=== PATIENT | male | born 1970 | race Caucasian/White ===

== ENCOUNTER 2016-12-04 16:43 | Emergency (ER) | payer OTHER ==
[2016-12-04 16:53] VITALS: TEMP 99.3
[2016-12-04] MEDS ORDERED: (Novolin R) Insulin Human Regular 100 units/ml vial IV STA ×2 (17:06→18:46)
[2016-12-04 17:21] LABS: VENOUS BLOOD GAS BASE EXCESS 2.8 mmol/L (0.0-2.0); VENOUS BLOOD GAS PCO2 40 mmHg (40-60); VENOUS BLOOD PH 7.44 (7.32-7.43)
[2016-12-04] MEDS ORDERED: (Novolin R) Insulin Human Regular 100 units/ml vial ONE ×2 (17:23→18:55)
[2016-12-04 17:25] LABS: BASO % 0.3 % (0.0-2.0); HEMATOCRIT 41.2 % (35.0-51.0); LYMPH # 0.9 K/uL (1.0-4.3); LYMPH % 6.6 % (20.0-40.0); MEAN CELL VOLUME 85.7 fL (80.0-94.0); MEAN CORPUSCULAR HEMOGLOBIN 29.1 pg (27.0-31.0); MEAN PLATELET VOLUME 9.6 fL (7.2-11.7); MONO # 0.6 K/uL (0.0-0.8); MONO % 4.4 % (0.0-10.0); NRBC % 0.1 % (0.0-2.0); PLATELET COUNT 265 K/uL (130-400); RED CELL DISTRIBUTION WIDTH 12.8 % (11.5-14.5); WHITE BLOOD COUNT 13.4 K/uL (4.8-10.8)
[2016-12-04 17:33] LABS: CHLORIDE 92 mmol/L (98-107); SODIUM 135 mmol/L (132-148)
[2016-12-04 17:34] LABS: POTASSIUM 3.3 mmol/L (3.6-5.2)
[2016-12-04 17:35] LABS: CHOLESTEROL 261 mg/dL (0-199); GFR AFRICAN-AMERICAN > 60
[2016-12-04 17:36] LABS: ALB/GLOB RATIO 1.1 (1.0-2.1); ALKALINE PHOSPHATASE 175 U/L (38-126); ALT/SGPT 38 U/L (21-72); AST/SGOT 21 U/L (17-59); BILIRUBIN,TOTAL 0.7 mg/dL (0.2-1.3); BLOOD UREA NITROGEN 11 mg/dL (9-20); CALCIUM 9.2 mg/dl (8.6-10.4); CARBON DIOXIDE 24 mmol/L (22-30); TOTAL PROTEIN 7.7 g/dL (6.3-8.3)
[2016-12-04 17:37] LABS: ALCOHOL SERUM < 10 mg/dl (0-10)
[2016-12-04 17:41] LABS: GLUCOSE,RANDOM 554 mg/dL (75-110)
--- NOTE | 2016-12-04 18:11 | C.PDOC ---
History Of Present Illness 46 yr old male presents to the ER for poorly controlled blood pressure. Patient states he feels dizzy and ran out of his blood pressure medicine 2 days ago. Patient denies fever, chills, chest pain, palpitations, SOB, nausea, vomiting, weakness or numbness. Time Seen by Provider: 12/04/16 16:59 Chief Complaint (Nursing): Dizziness/Lightheaded History Per: Patient History/Exam Limitations: no limitations Onset/Duration Of Symptoms: Days Past Medical History Reviewed: Historical Data, Nursing Documentation, Vital Signs Vital Signs: Last Vital Signs Temp 99.3 F 12/04/16 16:52 Pulse 89 12/04/16 19:25 Resp 23 12/04/16 19:25 BP 155/89 H 12/04/16 19:25 Pulse Ox 92 L 12/04/16 20:34 - Medical History PMH: HTN Family History: States: No Known Family Hx - Social History Hx Alcohol Use: No Hx Substance Use: No - Immunization History Hx Tetanus Toxoid Vaccination: No Hx Influenza Vaccination: No Hx Pneumococcal Vaccination: No Review Of Systems Except As Marked, All Systems Reviewed And Found Negative. Constitutional: Negative for: Fever, Chills Cardiovascular: Negative for: Chest Pain, Palpitations Respiratory: Negative for: Shortness of Breath Gastrointestinal: Negative for: Nausea, Vomiting Neurological: Positive for: Dizziness. Negative for: Weakness, Numbness Physical Exam - Physical Exam Appears: Non-toxic, No Acute Distress, Other ((+) Obese) Skin: Warm, Dry, No Rash Head: Atraumatic, Normacephalic Oral Mucosa: Dry Tongue: Other ((+) Obese tongue) Chest: Symmetrical, No Tenderness Cardiovascular: Rhythm Regular, No Murmur Respiratory: No Rales, No Rhonchi, No Wheezing, Other ((+) Small but patent airways.) Gastrointestinal/Abdominal: Normal Exam, Soft, No Tenderness, No Guarding, No Rebound, Other ((+) Obese) Extremity: Normal ROM, No Swelling Neurological/Psych: Oriented x3, Normal Speech, Normal Motor ED Course And Treatment - Laboratory Results Result Diagrams: 12/04/16 17:19 12/04/16 17:19 O2 Sat by Pulse Oximetry: 92 (RA ) Pulse Ox Interpretation: Normal - Other Rad CXR X-Ray: Viewed By Me, Read By Radiologist Interpretation: HISTORY: adm. COMPARISON: None available. TECHNIQUE: Chest , one view. FINDINGS: Examination limited by habitus and hypoinflation. The patient's chin obscures evaluation of the right lung apex. LUNGS: No focal consolidation. Please note that chest x-ray has limited sensitivity for the detection of pulmonary masses. PLEURA: No significant pleural effusion identified. No definite pneumothorax . CARDIOVASCULAR: Heart size appears within normal limits. Tortuous aorta. OSSEOUS STRUCTURES: Degenerative changes. VISUALIZED UPPER ABDOMEN: Unremarkable. OTHER FINDINGS: None. IMPRESSION: Hypoinflation. No focal consolidation, significant pleural effusion , or definite pneumothorax identified. - CT Scan/US CT - Head Other Rad Studies (CT/US): Read By Radiologist, Radiology Report Reviewed CT/US Interpretation: PROCEDURE: CT HEAD WITHOUT CONTRAST. HISTORY: elev BP, drowsy. COMPARISON: None available. TECHNIQUE: Axial computed tomography images were obtained through the head/brain without intravenous contrast. Radiation dose: Total exam DLP = 979.92 mGy-cm. This CT exam was performed using one or more of the following dose reduction techniques: Automated exposure control, adjustment of the mA and/or kV according to patient size, and/ or use of iterative reconstruction technique. FINDINGS: HEMORRHAGE: No intracranial hemorrhage. BRAIN: No mass effect or edema. Mild chronic periventricular microvascular ischemic change is noted. VENTRICLES: Unremarkable. No hydrocephalus. CALVARIUM: Unremarkable. PARANASAL SINUSES: Right maxillary retention cyst/polyp. MASTOID AIR CELLS: Unremarkable as visualized. No inflammatory changes. OTHER FINDINGS: None. IMPRESSION: No intracranial mass, hemorrhage or evidence of acute infarct. Progress Note: 1830: FS 351 -> insulin 10 IV. 2000: FS 365 -> insulin 10 IV. 2100: FS 285 (with mild nausea) Medical Decision Making Medical Decision Making: PLAN: * CT - Head * CXR * EKG * VBG * Drug Screen * Alchol Serum * Troponin * CBC * CMP * Urinalysis * Clonidine PO * Losartan PO * Trandate PO * Potassium Chloride PO * Pepcid IVP * Zofran IVP * Novolin IV * Sodium Chloride IV * 2020: pt's sister came to ER and verifies pt is disabled for "mental issues" Came from [place] May 2016 h/o CVA x 3 with no obvious neurological deficits, but pt unable to follow more than simple tasks. Was living with pt's ex-'s sister and 10 other family members with questionable quality of care (this pt is high maintenence) Able to run simple errands. Not empolyed. Noone is checking finger sticks on this pt, though administering insulin. Medicine regimen SUPPOSED to be: Lantus 40 QHS insulin 70/30 20-30 units TID AC ASA 81 QD Losartan 100 mg QD Atorvastatin 40 mg QD Breo Ellipta (fluticasone 100 mcg) 125/25 ? routine (1 puff daily) obvious small OP and huge tongue with reported S/s of CORINNA ? related to h/o CVA ( though head CT neg)- will refer for sleep Study Sister @ bedside will take home to care of him and f/u w Dr. De La Paz. Disposition Doctor Will See Patient In The: Office Counseled Patient/Family Regarding: Studies Performed, Diagnosis - Disposition Disposition: HOME/ ROUTINE Disposition Time: 20:58 Condition: GOOD Forms: [employer] ([place]) - Clinical Impression Clinical Impression: Diabetes 1.5, managed as type 1 - Scribe Statement The provider has reviewed the documentation as recorded by the Paulina Baxter Provider Attestation: All medical record entries made by the Scribe were at my direction and personally dictated by me. I have reviewed the chart and agree that the record accurately reflects my personal performance of the history, physical exam, medical decision making, and the department course for this patient. I have also personally directed, reviewed, and agree with the discharge instructions and disposition.
--- NOTE | 2016-12-04 18:14 | CT ---
PROCEDURE: CT HEAD WITHOUT CONTRAST. HISTORY: elev BP, drowsy COMPARISON: None available. TECHNIQUE: Axial computed tomography images were obtained through the head/brain without intravenous contrast. Radiation dose: Total exam DLP = 979.92 mGy-cm. This CT exam was performed using one or more of the following dose reduction techniques: Automated exposure control, adjustment of the mA and/or kV according to patient size, and/or use of iterative reconstruction technique. FINDINGS: HEMORRHAGE: No intracranial hemorrhage. BRAIN: No mass effect or edema. Mild chronic periventricular microvascular ischemic change is noted. VENTRICLES: Unremarkable. No hydrocephalus. CALVARIUM: Unremarkable. PARANASAL SINUSES: Right maxillary retention cyst/polyp MASTOID AIR CELLS: Unremarkable as visualized. No inflammatory changes. OTHER FINDINGS: None. IMPRESSION: No intracranial mass, hemorrhage or evidence of acute infarct.
[2016-12-04 18:16] LABS: NEUTROPHIL 89 % (50-75); TOTAL CELLS COUNTED 100
[2016-12-04 18:19] LABS: RBC URINE 18 /hpf (0-3); URINE BACTERIA RARE (<OCC); URINE BILIRUBIN NEGATIVE (NEGATIVE); URINE BLOOD 2+ (NEGATIVE); URINE COLOR Straw (YELLOW); URINE GLUCOSE (UA) 3+ mg/dL (Normal); URINE KETONE NEGATIVE (NEGATIVE); URINE LEUKOCYTE ESTERASE NEG Leu/uL (Negative); URINE PROTEIN 2+ mg/dL (NEGATIVE); URINE UROBILINOGEN NORMAL mg/dL (0.2-1.0); WBC URINE 2 /hpf (0-5)
[2016-12-04] MEDS ORDERED: Potassium Chloride 10 mEq ER Tab PO STA (18:46)
[2016-12-04] MEDS ORDERED: Sodium Chloride 0.9% 500 ML IV ONE (18:46)
[2016-12-04] MEDS ORDERED: Potassium Chloride 20 mEq ER Tab PO ONE (18:56)
--- NOTE | 2016-12-04 18:57 | RAD ---
HISTORY: adm COMPARISON: None available. TECHNIQUE: Chest, one view. FINDINGS: Examination limited by habitus and hypoinflation. The patient's chin obscures evaluation of the right lung apex. LUNGS: No focal consolidation. Please note that chest x-ray has limited sensitivity for the detection of pulmonary masses. PLEURA: No significant pleural effusion identified. No definite pneumothorax . CARDIOVASCULAR: Heart size appears within normal limits. Tortuous aorta. OSSEOUS STRUCTURES: Degenerative changes. VISUALIZED UPPER ABDOMEN: Unremarkable. OTHER FINDINGS: None. IMPRESSION: Hypoinflation. No focal consolidation, significant pleural effusion, or definite pneumothorax identified.
[2016-12-04 19:59] VITALS: O2SAT 92
[2016-12-04] MEDS ORDERED: (Novolin R) Insulin Human Regular 100 units/ml vial IV ONE (20:19)
[2016-12-04 21:03] VITALS: BP 138/76; PULSE 85; RESP 16
--- NOTE | 2016-12-05 11:53 | CARD ---
APPROVED REPORT EKG Measurement Heart [id number] <Conclusion> Normal sinus rhythm Possible Left atrial enlargement Right bundle branch block Left anterior fascicular block Bifascicular block Left ventricular hypertrophy Abnormal ECG
== END 2016-12-04 21:22 | disposition home or self-care (01) ==
LOC: C.ER 16:43
DX: E10.9 Type 1 diabetes mellitus without complications (principal); Z79.4 Long term (current) use of insulin; I10 Essential (primary) hypertension; E87.6 Hypokalemia
CPT/HCPCS: 70450; 71010; 80053; 80061; 81001; 82803; 82948; 83036; 83880; 84484; 85025; 85610; 85730; 93005; 96374; 96375; 96376; 99285; G0480; J2405; J7040